=== PATIENT | female | born 1955 | race Caucasian/White ===

== ENCOUNTER 2017-12-06 05:05 | Inpatient (IN) ==
[2017-12-01 13:56] LABS: Appearance,Urine CLEAR; Bilirubin,Urine NEG (NEG); Color,Urine YELLOW; Glucose,Urine (UA) NEGATIVE (NEG); Leukocyte Esterase,Urine NEG /uL (NEG); Protein,Urine NEG (NEG); Specific Gravity,Urine 1.006 (1.000-1.035); Urine Blood NEG mg/dL (<0.03); Urobilinogen,Urine NEG (NEG)
[2017-12-01 14:44] LABS: Blood Urea Nitrogen 14 mg/dl (8-23)
[2017-12-01 14:53] LABS: Basophils # (Auto) 0 K/mcL (0.0-0.3); Basophils % (Auto) 0.4 % (0.0-2.0); Eosinophils # (Auto) 0.2 K/mcL (0.0-0.7); Eosinophils % (Auto) 3.1 % (0.0-7.0); Granulocytes % (Auto) 53.7 % (38.0-78.0); Lymphocytes # (Auto) 2.2 K/mcL (1.5-4.8); Lymphocytes % (Auto) 35.8 % (15.5-49.0); Mean Cell Volume 86.4 fL (80.0-100.0); Mean Corpuscular HGB Conc 34.4 g/dL (31.0-36.0); Mean Corpuscular Hemoglobin 29.8 pg (26.0-34.0); Monocytes # (Auto) 0.4 K/mcL (0.1-0.9); Platelet Count 264 K/mcL (140-440); RBC 4.62 M/mcL (4.00-5.20)
[2017-12-06] MEDS ORDERED: PREGABALIN 75 MG CAPSULE PO SCH (06:00)
[2017-12-06] MEDS ORDERED: ceFAZolin 1 GM VIAL IV SCH (06:00)
[2017-12-06] MEDS ORDERED: ACETAMINOPHEN 500 MG TABLET PO SCH (06:00)
[2017-12-06] MEDS ORDERED: 0.9 % SODIUM CHLORIDE 9 ML, KETOROLAC 30 MG, ROPIVACAINE HCL/PF 49.5 ML, EPINEPHrine 0.... IJ SCH (06:00)
[2017-12-06] MEDS ORDERED: CELECOXIB 200 MG CAPSULE PO SCH (06:00)
[2017-12-06] MEDS ORDERED: ROPIVACAINE HCL/PF 30 ML VIAL IJ ONE (07:45)
[2017-12-06] MEDS ORDERED: PROPOFOL 200 MG/20 ML VIAL IV ONE (07:45)
[2017-12-06] MEDS ORDERED: KETAMINE 100 MG/ML ML IV ONE (07:45)
[2017-12-06] MEDS ORDERED: LIDOCAINE HCL/PF 100 MG/5 ML SYRINGE IV ONE (07:45)
[2017-12-06] MEDS ORDERED: ONDANSETRON 4 MG/2 ML VIAL IV ONE (07:45)
[2017-12-06] MEDS ORDERED: GLYCOPYRROLATE 0.2 MG/ML VIAL IV ONE (07:45)
[2017-12-06] MEDS ORDERED: PHENYLEPHRINE 10 MG/ML VIAL IV ONE (07:45)
[2017-12-06] MEDS ORDERED: MIDAZOLAM 2 MG/2 ML VIAL IV ONE (07:45)
[2017-12-06] MEDS ORDERED: TRIAMCINOLONE ACETONIDE 40 MG/ML VIAL IM ONE (08:22)
[2017-12-06] MEDS ORDERED: BUPIVACAINE 0.5% 50 ML VIAL IJ ONE (08:22)
[2017-12-06] MEDS ORDERED: GENTAMICIN SULFATE 800 MG/20 ML VIAL IR ONE (08:22)
[2017-12-06] MEDS ORDERED: DEXAMETHASONE 10 MG/ML VIAL IM ONE (08:22)
[2017-12-06] MEDS ORDERED: IPRATROPIUM/ALBUTEROL 3 ML AMPUL.NEB NEB PRN (09:04)
[2017-12-06] MEDS ORDERED: MEPERIDINE 25 MG/ML SYRINGE IV PRN (09:04)
[2017-12-06] MEDS ORDERED: METHOCARBAMOL 1,000 MG/10 ML VIAL IV PRN (09:04)
[2017-12-06] MEDS ORDERED: fentaNYL 100 MCG/2 ML VIAL IV PRN (09:04)
[2017-12-06] MEDS ORDERED: PROMETHAZINE 25 MG/ML VIAL IV PRN (09:04)
[2017-12-06] MEDS ORDERED: ACETAMINOPHEN 325 MG TABLET PO PRN (09:09)
[2017-12-06] MEDS ORDERED: POLYETHYLENE GLYCOL 3350 17 GM PACKET PO PRN (09:09)
[2017-12-06] MEDS ORDERED: TRANEXAMIC ACID 1,000 MG/10 ML VIAL IV SCH (09:09)
[2017-12-06] MEDS ORDERED: HYDROmorphone 2 MG/ML VIAL IV PRN (09:09)
[2017-12-06] MEDS ORDERED: ONDANSETRON 4 MG/2 ML VIAL IV PRN (09:09)
[2017-12-06] MEDS ORDERED: MAGNESIUM HYDROXIDE 30 ML ORAL.SUSP PO PRN (09:09)
[2017-12-06] MEDS ORDERED: BENZOCAINE/MENTHOL 1 LOZENGE PO PRN (09:09)
[2017-12-06] MEDS ORDERED: BISACODYL 10 MG SUPP.RECT PR PRN (09:09)
[2017-12-06] MEDS ORDERED: FLEETS ADULT ENEMA PR PRN (09:09)
--- NOTE | 2017-12-06 09:09 | Brief Operative Note ---
Date of procedure: 12/06/17 Pre-op diagnosis: left knee djd severe Post-op diagnosis: same Procedure: left tka with robotics Grafts/Implants: Yes Anesthesia: GETA Complications: none Surgeon: Shahzad Lomas Estimated blood loss (cc): 20 Tourniquet Time (Minutes): 51 Specimens Removed/Pathology: none sent Condition: stable Disposition: PACU
[2017-12-06] MEDS ORDERED: LACTATED RINGERS 1,000 ML IV SCH (09:15)
--- NOTE | 2017-12-06 10:00 | Operative Note ---
DATE OF OPERATION: 12/06/2017 PREOPERATIVE DIAGNOSIS: Left knee degenerative arthritis. POSTOPERATIVE DIAGNOSIS: Left knee degenerative arthritis. PROCEDURE: Left total knee arthroplasty. SURGEON: Shahzad Lomas MD STAFFING PROGRAM MANAGER: Elie Gabriel PA-C TOTAL TOURNIQUET TIME: 51 minutes. ESTIMATED BLOOD LOSS: 10 mL COMPLICATIONS: None. DESCRIPTION OF PROCEDURE: The patient was brought to the operating room and put to sleep with general anesthesia. Once asleep, the patient had the left leg sterilely prepped and draped in the usual sterile fashion. This was confirmed as the operative site. Preop antibiotics were given, tranexamic acid was given. Tourniquet inflated to 250 pounds of pressure. I then made a midline incision, a mid vastus approach was performed and we performed a robotic total knee, two pins above and below the knee. We registered the center of hip rotation medial and lateral malleolus, intra-articular pins both femoral and tibial. The pins were registered and 30 points on the femur and tibia. The ACL and PCL were evaluated and ACL was intact. PCL was intact. At this point, we revealed severe arthritis throughout the joint. We proceeded with the robotic total knee. We balanced the knee perfectly for the patient's anatomy and stressing the ligaments both at 15 degrees and 90 degrees. Once done, we then brought in the robot and the tibial cut was made. Then, we made the femoral cuts reregistering for the femur and the tibia and the robot was reregistered every cut. Bony fragments were removed. We then removed the remnants of the meniscus and any spurs. I then tapped into place the tibial baseplate setting rotation for this patient's anatomy by the robot. Once done, we then tapped into place the femoral component and drilled the peg holes. Once done, we prepared the patella, measured total thickness and cut this perfectly for the thickness of poly that this needed. We irrigated thoroughly, trialed a size 9 poly. The 9 poly was the most appropriate for this patient. We irrigated thoroughly and saw that this matched perfectly our preplanned alignment and anatomy. We irrigated thoroughly and then cemented into place the above-mentioned implants, 9 mm poly, a 31 mm patellar button. COMPLICATIONS: None. We irrigated thoroughly and kept the knee at 45 degrees until all cement was dry. I then closed the mid vastus approach with #1 Stratafix x2 sutures, irrigated thoroughly and then skin was closed with 2-0 Vicryl and adhesive closure. The patient tolerated this well without complication. [facility] Job ID: [id number] Doc ID: [id number] Shahzad Lomas MD
--- NOTE | 2017-12-06 10:01 | XRay Report ---
HISTORY: Postop knee replacement FINDINGS: There is a well-positioned left total knee prosthesis. There is no fracture or abnormal soft tissue calcification. IMPRESSION: Well-positioned left knee prosthesis Interpreted and Authenticated by: Choco Guillaume 12/06/17
[2017-12-06] MEDS: KETOROLAC 15 MG/ML VIAL IV SCH ×3 (11:31→23:33)
[2017-12-06] MEDS: 0.45 % SODIUM CHLORIDE 1,000 ML IV SCH ×2 (13:28→19:15)
[2017-12-06] MEDS: 0.9 % SODIUM CHLORIDE 10 ML SYRINGE IV SCH ×2 (13:28→22:41)
[2017-12-06] MEDS: HYDROcodone/APAP 10/325MG TABLET PO PRN ×3 (15:07→23:34)
[2017-12-06] MEDS: ceFAZolin 1 GM VIAL IV SCH ×2 (15:12→23:33)
[2017-12-06] MEDS ORDERED: TEMAZEPAM 15 MG CAPSULE PO PRN (21:00)
[2017-12-06] MEDS ORDERED: SENNOSIDES 1 TABLET PO SCH (21:00)
[2017-12-06] MEDS: ASPIRIN 325 MG ENTERIC COATED TABLET PO SCH (22:41)
[2017-12-06] MEDS: DOCUSATE SODIUM 100 MG CAPSULE PO SCH (22:41)
[2017-12-07] MEDS: KETOROLAC 15 MG/ML VIAL IV SCH (06:09)
[2017-12-07] MEDS: 0.9 % SODIUM CHLORIDE 10 ML SYRINGE IV SCH (06:46)
--- NOTE | 2017-12-07 08:11 | Discharge Summary ---
Ortho Discharge - TKA - Patient Instructions Diet: Regular Diet Activity: activity as tolerated, weight bearing as tolerated Total Knee Protocol: For Total Knee: Start ROM BORIS with stationary bike or rocking chair. Work on gaining full extension of knee. Posterior dislocation precautions provided. Hip abductor strengthening and gait training instructions provided. Apply Cryocuff as instructed. Dressing Care: Aquacel Ag - leave on for 5 days Patient Education: Total Knee Replacement (DC) Additional Instructions: CPM for home use - Follow Up Plan Follow Up Appointments: Eleazar Moreno PA-C [Physician Contract Graphic Designer] - 12/23/17 10:00 am Disposition: Hospice - Home Prognosis: Good Rehab Potential: Good I certify that the patient requires SNF services: No Overall status at discharge: patient is progressing back to baseline - Orders For Discharge Prescriptions: HYDROcodone/APAP 10/325MG [[place] 10-325Mg] 1 - 2 mg PO Q4HP PRN #60 tab PRN Reason: Pain Level 3-6 Additional Discharge Orders: Physical Therapy at Discharge - TKA Location: None Selected CPM Discharge Order Location: None Selected Toilet Riser Discharge Order Location: None Selected Walker Location: None Selected
[2017-12-07] MEDS: ASPIRIN 325 MG ENTERIC COATED TABLET PO SCH (08:22)
[2017-12-07] MEDS: DOCUSATE SODIUM 100 MG CAPSULE PO SCH (08:23)
[2017-12-07] MEDS: HYDROcodone/APAP 10/325MG TABLET PO PRN (08:24)
[2017-12-07] MEDS ORDERED: LORATADINE 10 MG TABLET PO SCH (09:00)
[2017-12-07] MEDS ORDERED: PSEUDOEPHEDRINE PO SCH (09:00)
[2017-12-07] MEDS ORDERED: [UNRECOGNIZED DRUG - OTHER] PO SCH (09:00)
[2017-12-07] MEDS ORDERED: CALCIUM W/VIT D3 500 MG TABLET PO SCH (09:00)
[2017-12-07] MEDS ORDERED: VITAMIN B COMPLEX 1 CAPSULE PO SCH (09:00)
[2017-12-07] MEDS ORDERED: MULTIVIT,THER IRON,CA,FA & MIN 1 TABLET PO SCH (09:00)
[2017-12-07] MEDS ORDERED: GLUCOSAMINE/CHONDROITIN SULF A 1 CAP CAPSULE PO SCH (09:00)
[2017-12-07] MEDS ORDERED: FISH OIL 1,000 MG CAPSULE PO SCH (09:00)
[2017-12-07] MEDS ORDERED: METOPROLOL SUCCINATE 25 MG TAB.XL.24H PO SCH (09:00)
[2017-12-07] MEDS ORDERED: PSEUDOEPHEDRINE 30 MG TABLET PO SCH (09:00)
[2017-12-07] MEDS ORDERED: LORATADINE PO SCH (09:00)
[2017-12-07] MEDS ORDERED: ASCORBIC ACID 500 MG TABLET PO SCH (09:00)
[2017-12-07] MEDS ORDERED: BIOTIN 1 MG PO SCH (09:00)
== END 2017-12-07 11:35 | disposition home or self-care (01) | DRG 470 ==
LOC: MEDSUR 05:05
PROVIDERS: ADMIT Orthopaedic Surgery; ATTEND Orthopaedic Surgery
PROC: STINJOR (2017-12-06 07:43)